=== PATIENT | female | born 1945 | race Caucasian/White ===

== ENCOUNTER 2018-07-04 13:45 | Emergency (ER) | payer MEDICARE ==
[~2018-07-04] VITALS: Ht 167.6 cm; Wt 95.5 kg
[~2018-07-04 13:45] MED LIST: AMLO1TAB15 PO; ASPI-611 PO; CIPR500T24 PO; VITA-268 PO
[2018-07-04 14:37] LABS: BASOPHILS % (AUTO) 0.4 % (0-1); EOSINOPHILS % (AUTO) 0.2 % (0-6); HEMATOCRIT 41.1 % (35.0-45.0); HEMOGLOBIN 14.2 g/dl (12.0-16.0); LYMPHOCYTES # (AUTO) 0.8 X10'3 (1.1-4.8); LYMPHOCYTES % (AUTO) 6.9 % (21-51); MEAN CORPUSCULAR HEMOGLOBIN 31.2 PG (27.0-31.0); MEAN CORPUSCULAR HGB CONC 34.5 g/dL (33.0-36.5); MEAN CORPUSCULAR VOLUME 90.5 FL (78-98); MEAN PLATELET VOLUME 6.4 FL (7.4-10.4); MONOCYTES # (AUTO) 0.8 X10'3 (0-0.9); MONOCYTES % (AUTO) 6.9 % (2-12); NEUTROPHILS # (AUTO) 9.5 X10'3 (1.8-7.7); NEUTROPHILS % (AUTO) 85.6 % (42-75); PLATELET COUNT 204 X10'3 (140-440); RED BLOOD COUNT 4.54 X10'6 (4.20-5.60); RED CELL DISTRIBUTION WIDTH 12.8 % (11.5-14.5); WHITE BLOOD COUNT 11.1 X10'3 (4.5-11.0)
[2018-07-04] MEDS ORDERED: normal saline 1000ML IV soln IVB ONE (14:45)
[2018-07-04 14:50] LABS: INR 1.1 INR; PARTIAL THROMBOPLASTIN TIME 29 SECONDS (22-32); PROTHROMBIN TIME 10.8 SECONDS (9.0-12.0)
[2018-07-04 14:52] LABS: ALANINE AMINOTRANSFERASE 41 U/L (12-78); ALBUMIN 3.9 G/DL (3.4-5.0); ALBUMIN/GLOBULIN RATIO 0.9 (1.1-1.5); ALKALINE PHOSPHATASE 71 IU/L (46-116); ANION GAP 8 (8-16); ASPARTATE AMINO TRANSFERASE 28 U/L (10-37); BILIRUBIN,TOTAL 0.7 MG/DL (0.1-1.0); BLOOD UREA NITROGEN 10 MG/DL (7-18); BUN/CREATININE RATIO 13.2 (6.6-38.0); CHLORIDE 99 MMOL/L (99-107); CREATININE 0.76 MG/DL (0.40-0.90); GLUCOSE 138 MG/DL (70-104); SODIUM 134 MMOL/L (135-145); TOTAL CARBON DIOXIDE 26.7 MMOL/L (24-32); TOTAL PROTEIN 8.2 G/DL (6.4-8.2); eGFR 75 ML/MIN
[2018-07-04] MEDS ORDERED: potassium Cl 20 mEq SR tablet PO STA (15:07)
[2018-07-04 17:39] LABS: CLARITY,URINE CLOUDY (Clear); COLOR,URINE YELLOW (Yellow); GLUCOSE, URINE NEGATIVE (Neg); KETONES,URINE NEGATIVE (Neg); LEUKOCYTE ESTERASE ,URINE SMALL (Neg); NITRITES, URINE POSITIVE (Neg); OCCULT BLOOD,URINE TRACE-INTACT (Neg); PROTEIN,URINE NEGATIVE (Neg); UROBILINOGEN,URINE 0.2 E.U/dL (0.2-1.0)
[2018-07-04 17:48] LABS: UA COLLECTION TYPE CLN CATCH MIDSTREAM
[2018-07-04 17:53] LABS: BACTERIA,URINE 3+ /HPF (Neg); SQUAMOUS EPITHELIAL CELL,UR FEW /LPF (FEW)
[2018-07-04 17:54] LABS: RBC,URINE 0-2 /HPF (0-2); WBC CLUMPS,URINE FEW /HPF (NEGATIVE)
[2018-07-04] MEDS ORDERED: AMOX-422 PO (17:58)
[2018-07-04] MEDS ORDERED: piperacillin/tazo 3.375gm/50ml 50 ML IV ONE (18:00)
[2018-07-04 19:32] VITALS: BP 160/78
== END 2018-07-04 19:34 | disposition home or self-care (01) ==
LOC: ER 13:47
DX: N39.0 Urinary tract infection, site not specified (principal); R51 Headache; R05 Cough; I10 Essential (primary) hypertension; G89.29 Other chronic pain; R79.1 Abnormal coagulation profile; Z98.890 Other specified postprocedural states; Z88.1 Allergy status to other antibiotic agents; Z88.5 Allergy status to narcotic agent; Z88.8 Allergy status to other drugs, medicaments and biological substances; Z79.82 Long term (current) use of aspirin; Z79.899 Other long term (current) drug therapy
CPT/HCPCS: 36415; 71045; 80053; 81001; 84484; 85025; 85610; 85730; 87502; 87503; 93005; 96365; 99284; J2543; J7030

== ENCOUNTER 2018-09-24 12:19 | Emergency (ER) | payer MEDICARE ==
[~2018-09-24] VITALS: Ht 167.6 cm; Wt 100.9 kg
[2018-09-24 13:13] LABS: BASOPHILS % (AUTO) 0.7 % (0-1); EOSINOPHILS # (AUTO) 0.1 X10'3 (0-0.9); HEMATOCRIT 40.1 % (35.0-45.0); HEMOGLOBIN 13.5 g/dl (12.0-16.0); LYMPHOCYTES # (AUTO) 1.5 X10'3 (1.1-4.8); LYMPHOCYTES % (AUTO) 21.9 % (21-51); MEAN CORPUSCULAR HEMOGLOBIN 31.2 PG (27.0-31.0); MEAN CORPUSCULAR HGB CONC 33.7 g/dL (33.0-36.5); MEAN CORPUSCULAR VOLUME 92.6 FL (78-98); MEAN PLATELET VOLUME 6.4 FL (7.4-10.4); MONOCYTES # (AUTO) 0.6 X10'3 (0-0.9); MONOCYTES % (AUTO) 9.2 % (2-12); NEUTROPHILS # (AUTO) 4.7 X10'3 (1.8-7.7); NEUTROPHILS % (AUTO) 66.2 % (42-75); PLATELET COUNT 259 X10'3 (140-440); RED BLOOD COUNT 4.34 X10'6 (4.20-5.60); RED CELL DISTRIBUTION WIDTH 14.3 % (11.5-14.5)
[2018-09-24 13:18] LABS: PARTIAL THROMBOPLASTIN TIME 28 SECONDS (22-32)
[2018-09-24 13:19] LABS: ALANINE AMINOTRANSFERASE 30 U/L (12-78); ALBUMIN/GLOBULIN RATIO 0.9 (1.1-1.5); ALKALINE PHOSPHATASE 147 IU/L (46-116); ANION GAP 10 (8-16); ASPARTATE AMINO TRANSFERASE 22 U/L (10-37); BILIRUBIN,TOTAL 0.4 MG/DL (0.1-1.0); BLOOD UREA NITROGEN 10 MG/DL (7-18); BUN/CREATININE RATIO 14.7 (6.6-38.0); CALCIUM 9.6 MG/DL (8.5-10.1); CHLORIDE 101 MMOL/L (99-107); CREATININE 0.68 MG/DL (0.40-0.90); GLUCOSE 122 MG/DL (70-104); POTASSIUM 3.9 MMOL/L (3.5-5.1); SODIUM 141 MMOL/L (135-145); TOTAL PROTEIN 8.5 G/DL (6.4-8.2); eGFR 85 ML/MIN
[2018-09-24] MEDS ORDERED: cloNIDine 0.1 mg tablet PO ONE (13:40)
[2018-09-24 14:23] VITALS: BP 175/85
== END 2018-09-24 14:25 | disposition home or self-care (01) ==
LOC: ER 12:19
DX: J06.9 Acute upper respiratory infection, unspecified (principal); I10 Essential (primary) hypertension; G89.29 Other chronic pain; M54.9 Dorsalgia, unspecified; Z88.6 Allergy status to analgesic agent; Z88.1 Allergy status to other antibiotic agents; Z88.8 Allergy status to other drugs, medicaments and biological substances; Z79.82 Long term (current) use of aspirin
CPT/HCPCS: 36415; 71045; 80053; 84484; 85025; 85610; 85730; 93005; 99283; 99284

== ENCOUNTER 2018-12-27 18:22 | Inpatient (IN) | payer MEDICARE ==
[~2018-12-27] VITALS: Ht 167.6 cm; Wt 100.0 kg
[2018-12-27 19:37] LABS: PARTIAL THROMBOPLASTIN TIME 28 SECONDS (22-32)
[2018-12-27 19:38] LABS: ALANINE AMINOTRANSFERASE 37 U/L (12-78); ALBUMIN 3.8 G/DL (3.4-5.0); ALKALINE PHOSPHATASE 73 IU/L (46-116); ANION GAP 10 (8-16); ASPARTATE AMINO TRANSFERASE 23 U/L (10-37); BILIRUBIN,TOTAL 0.8 MG/DL (0.1-1.0); BLOOD UREA NITROGEN 12 MG/DL (7-18); BUN/CREATININE RATIO 15.8 (6.6-38.0); CALCIUM 8.8 MG/DL (8.5-10.1); CHLORIDE 100 MMOL/L (99-107); CREATININE 0.76 MG/DL (0.40-0.90); GLUCOSE 189 MG/DL (70-104); POTASSIUM 3.2 MMOL/L (3.5-5.1); SODIUM 138 MMOL/L (135-145); TOTAL CARBON DIOXIDE 28.3 MMOL/L (24-32); TOTAL PROTEIN 7.7 G/DL (6.4-8.2); eGFR 75 ML/MIN
[2018-12-27 19:47] LABS: BASOPHILS % (AUTO) 0.2 % (0-1); EOSINOPHILS % (AUTO) 0 % (0-6); HEMATOCRIT 39.9 % (35.0-45.0); HEMOGLOBIN 13.6 g/dl (12.0-16.0); LYMPHOCYTES # (AUTO) 0.8 X10'3 (1.1-4.8); LYMPHOCYTES % (AUTO) 7.1 % (21-51); MEAN CORPUSCULAR HGB CONC 34.1 g/dL (33.0-36.5); MEAN CORPUSCULAR VOLUME 90.9 FL (78-98); MONOCYTES # (AUTO) 0.7 X10'3 (0-0.9); MONOCYTES % (AUTO) 5.9 % (2-12); NEUTROPHILS # (AUTO) 10.3 X10'3 (1.8-7.7); NEUTROPHILS % (AUTO) 86.8 % (42-75); PLATELET COUNT 181 X10'3 (140-440); RED BLOOD COUNT 4.39 X10'6 (4.20-5.60); WHITE BLOOD COUNT 11.8 X10'3 (4.5-11.0)
[2018-12-27] MEDS ORDERED: normal saline 1000ML IV soln IVB ONE (20:00)
[2018-12-27] MEDS ORDERED: magnesium hydroxide 30ml (MOM) UD suspension PO PRN (20:25)
[2018-12-27] MEDS ORDERED: magnesium 4gm in 100ml NS 100 ML IV PRN (20:25)
[2018-12-27] MEDS ORDERED: acetaminophen 325mg tablet PO PRN ×2 (20:25)
[2018-12-27] MEDS ORDERED: HYDROcodone/acetaminophen 10/325mg tab PO PRN (20:25)
[2018-12-27] MEDS ORDERED: normal saline 1000ml 1,000 ML IV ONE (20:25)
[2018-12-27] MEDS ORDERED: HYDROcodone/acetaminophen 5mg/325mg tablet PO PRN (20:25)
[2018-12-27] MEDS ORDERED: potassium CL 10mEq/100ml bag 100 ML IV PRN ×2 (20:25)
[2018-12-27] MEDS ORDERED: ondansetron/PF 4mg/2ml inj IV PRN (20:25)
[2018-12-27] MEDS ORDERED: mag hydrox/Alum hydrox/simeth 30ml oral suspension PO PRN (20:25)
[2018-12-27] MEDS ORDERED: morphine 2 MG/ML inj. syringe IV PRN ×2 (20:25)
[2018-12-27] MEDS ORDERED: potassium Cl 20 mEq SR tablet PO PRN (20:25)
[2018-12-27] MEDS ORDERED: magnesium Cl slow-release 64mg tablet PO PRN (20:25)
[2018-12-27] MEDS ORDERED: magnesium 2GM in 50ml NS 50 ML IV PRN (20:25)
[2018-12-27 20:29] LABS: CLARITY,URINE CLEAR (Clear); COLOR,URINE YELLOW (Yellow); GLUCOSE, URINE NEGATIVE (Neg); KETONES,URINE NEGATIVE (Neg); LEUKOCYTE ESTERASE ,URINE TRACE (Neg); NITRITES, URINE NEGATIVE (Neg); OCCULT BLOOD,URINE NEGATIVE (Neg); PH,URINE 6.5 (4.8-8.0); PROTEIN,URINE TRACE mg/dl (Neg); UROBILINOGEN,URINE 0.2 E.U/dL (0.2-1.0)
[2018-12-27] MEDS ORDERED: MESSAGE TO PHARMACY PO ONE (20:30)
[2018-12-27] MEDS ORDERED: dextrose 50%-water 50ml dispensing syringe IV PRN ×2 (20:30)
[2018-12-27] MEDS ORDERED: glucagon, human recombinant 1mg kit SUBCUT PRN (20:30)
[2018-12-27] MEDS ORDERED: dextrose ORAL solution 15 GM/59 ML bottle PO PRN ×2 (20:30)
[2018-12-27] MEDS: insulin glargine (Lantus) pen - multi-dose SQ SCH (21:00)
--- NOTE | 2018-12-27 21:00 | NUR ---
I got verbal report from Rosalina MARTINEZ regarding patient and I will give report to Tiffany MARTINEZ when she is back from break.
[2018-12-27 21:05] LABS: UA COLLECTION TYPE CLN CATCH MIDSTREAM
[2018-12-27] MEDS ORDERED: AMLO2.5T2 PO (21:06)
[2018-12-27] MEDS ORDERED: METF500T PO (21:06)
[2018-12-27] MEDS ORDERED: FURO40TA4 PO (21:07)
[2018-12-27] MEDS ORDERED: VALS160T30 PO (21:08)
[2018-12-27] MEDS ORDERED: POTA20PA40 PO (21:08)
[2018-12-27 21:13] LABS: BACTERIA,URINE FEW /HPF (Neg); MUCUS STRANDS NONE SEEN /LPF (Neg); RBC,URINE NONE SEEN /HPF (0-2); SQUAMOUS EPITHELIAL CELL,UR MODERATE /LPF (FEW)
[2018-12-27 21:20] VITALS: BP 174/83
[2018-12-27] MEDS: potassium Cl 20 mEq SR tablet PO PRN (21:42)
[2018-12-27] MEDS: VANCOmycin 1250MG/NS 250ml Bag 250 ML IV SCH (21:50)
--- NOTE | 2018-12-27 23:40 | NUR ---
Called MD to notify him that only 1 bottle for BC was drawn, unable to get enough blood for 2nd bottle. stated that we could cancel the order, as patient seems to be doing ok.
[2018-12-28] MEDS: potassium Cl 20 mEq SR tablet PO PRN ×3 (01:55→17:28)
[2018-12-28 06:10] VITALS: BP 181/78
--- NOTE | 2018-12-28 06:21 | NUR ---
Problems reprioritized. Patient report given, questions answered & plan of care reviewed with MICHELLE Adams.
[2018-12-28 07:10] LABS: BASOPHILS # (AUTO) 0.1 X10'3 (0-0.2); BASOPHILS % (AUTO) 0.6 % (0-1); EOSINOPHILS % (AUTO) 0.5 % (0-6); HEMATOCRIT 34.8 % (35.0-45.0); LYMPHOCYTES # (AUTO) 1.3 X10'3 (1.1-4.8); LYMPHOCYTES % (AUTO) 15.2 % (21-51); MEAN CORPUSCULAR HEMOGLOBIN 31.4 PG (27.0-31.0); MEAN CORPUSCULAR HGB CONC 34.4 g/dL (33.0-36.5); MEAN CORPUSCULAR VOLUME 91.4 FL (78-98); MEAN PLATELET VOLUME 6.7 FL (7.4-10.4); MONOCYTES # (AUTO) 0.8 X10'3 (0-0.9); MONOCYTES % (AUTO) 8.5 % (2-12); NEUTROPHILS # (AUTO) 6.6 X10'3 (1.8-7.7); NEUTROPHILS % (AUTO) 75.2 % (42-75); PLATELET COUNT 157 X10'3 (140-440); RED BLOOD COUNT 3.81 X10'6 (4.20-5.60); RED CELL DISTRIBUTION WIDTH 13.8 % (11.5-14.5); WHITE BLOOD COUNT 8.8 X10'3 (4.5-11.0)
[2018-12-28 07:27] LABS: ALBUMIN 3.1 G/DL (3.4-5.0); ANION GAP 7 (8-16); BLOOD UREA NITROGEN 14 MG/DL (7-18); BUN/CREATININE RATIO 21.5 (6.6-38.0); CALCIUM 8.4 MG/DL (8.5-10.1); CHLORIDE 106 MMOL/L (99-107); CREATININE 0.65 MG/DL (0.40-0.90); GLUCOSE 144 MG/DL (70-104); MAGNESIUM 1.6 MG/DL (1.5-2.4); POTASSIUM 3.4 MMOL/L (3.5-5.1); SODIUM 140 MMOL/L (135-145); TOTAL CARBON DIOXIDE 26.6 MMOL/L (24-32); eGFR 89 ML/MIN
[2018-12-28] MEDS: K and/or MAG REPLACEMENT MC SCH (08:00)
[2018-12-28] MEDS: losartan 50mg tablet PO SCH (08:16)
[2018-12-28] MEDS: amLODIPine 5mg tablet PO SCH (08:16)
[2018-12-28] MEDS: enoxaparin 40mg/0.4ml syringe SQ SCH (08:16)
[2018-12-28] MEDS: potassium Cl 20 mEq SR tablet PO SCH (08:16)
[2018-12-28] MEDS: furosemide 40mg tablet PO SCH (08:16)
[2018-12-28] MEDS: vitamin B comp w/Vit. C tab 1 TAB TABLET PO SCH (08:23)
[2018-12-28] MEDS: VANCOmycin 1250MG/NS 250ml Bag 250 ML IV SCH ×2 (08:23→21:03)
[2018-12-28 10:00] VITALS: BP 148/77
--- NOTE | 2018-12-28 13:31 | NUR ---
DM consult: Pt with A1c 7.0 admit with RLE cellulitis. Pt currently on CHO controlled diet documented with 100% PO intake meeting nutrient needs. Pt will need protein and DM education with referral to outpatient DM class prior to discharge. Will continue to follow. Addendum: 12/28/18 at [address] Amended: Links added.
[2018-12-28] MEDS ORDERED: CefTRIAXone 2gm/D5W 50ml 50 ML IV ONE (15:15)
--- NOTE | 2018-12-28 16:02 | NUR ---
PAGER ID: [phone] MESSAGE: Lamar [id number] re Levi Ferrer in [id number]- she has an allergy to cephalexin, what would you like me to do? Pls call thank you
[2018-12-28 18:00] VITALS: BP 165/81
[2018-12-28] MEDS: ciprofloxacin lact 400MG/200ML 200 ML IV SCH (18:00)
[2018-12-28] MEDS: insulin glargine (Lantus) pen - multi-dose SQ SCH (21:19)
[2018-12-28 22:00] VITALS: BP 163/95
[2018-12-29 06:00] VITALS: BP 179/77
--- NOTE | 2018-12-29 06:24 | NUR ---
Problems reprioritized. Patient report given, questions answered & plan of care reviewed with MICHELLE Cho.
--- NOTE | 2018-12-29 06:30 | NUR ---
received report from morris souza
[2018-12-29] MEDS: K and/or MAG REPLACEMENT MC SCH (08:00)
[2018-12-29] MEDS ORDERED: CefTRIAXone 2gm/D5W 50ml 50 ML IV SCH (08:00)
--- NOTE | 2018-12-29 08:00 | NUR ---
pt tells me that she does not need warm compresses, continue to educate and monitor
[2018-12-29] MEDS ORDERED: VANCOMYCIN LEVEL IV ONE (08:30)
[2018-12-29] MEDS: insulin Lispro (HumaLOG) vial - multi-dose SQ SCH ×3 (09:02→20:09)
[2018-12-29] MEDS: potassium Cl 20 mEq SR tablet PO PRN ×2 (09:07→13:02)
[2018-12-29] MEDS: potassium Cl 20 mEq SR tablet PO SCH (09:07)
[2018-12-29] MEDS: losartan 50mg tablet PO SCH (09:08)
[2018-12-29] MEDS: amLODIPine 5mg tablet PO SCH (09:08)
[2018-12-29] MEDS: furosemide 40mg tablet PO SCH (09:08)
[2018-12-29] MEDS: vitamin B comp w/Vit. C tab 1 TAB TABLET PO SCH (09:08)
[2018-12-29] MEDS: ciprofloxacin lact 400MG/200ML 200 ML IV SCH ×2 (09:09→20:43)
[2018-12-29 09:12] LABS: BASOPHILS # (AUTO) 0.1 X10'3 (0-0.2); BASOPHILS % (AUTO) 1.1 % (0-1); EOSINOPHILS # (AUTO) 0.1 X10'3 (0-0.9); HEMATOCRIT 36.8 % (35.0-45.0); HEMOGLOBIN 12.5 g/dl (12.0-16.0); LYMPHOCYTES # (AUTO) 1.2 X10'3 (1.1-4.8); MEAN CORPUSCULAR HEMOGLOBIN 31.1 PG (27.0-31.0); MEAN CORPUSCULAR HGB CONC 33.9 g/dL (33.0-36.5); MEAN CORPUSCULAR VOLUME 91.7 FL (78-98); MEAN PLATELET VOLUME 6.8 FL (7.4-10.4); MONOCYTES # (AUTO) 0.4 X10'3 (0-0.9); MONOCYTES % (AUTO) 6.8 % (2-12); NEUTROPHILS # (AUTO) 4.2 X10'3 (1.8-7.7); NEUTROPHILS % (AUTO) 70.1 % (42-75); PLATELET COUNT 182 X10'3 (140-440); RED BLOOD COUNT 4.02 X10'6 (4.20-5.60); RED CELL DISTRIBUTION WIDTH 13.6 % (11.5-14.5)
[2018-12-29] MEDS: enoxaparin 40mg/0.4ml syringe SQ SCH (09:15)
[2018-12-29 09:27] LABS: ALBUMIN 3.3 G/DL (3.4-5.0); ANION GAP 8 (8-16); BLOOD UREA NITROGEN 10 MG/DL (7-18); BUN/CREATININE RATIO 16.4 (6.6-38.0); CALCIUM 8.4 MG/DL (8.5-10.1); CHLORIDE 108 MMOL/L (99-107); CREATININE 0.61 MG/DL (0.40-0.90); GLUCOSE 155 MG/DL (70-104); MAGNESIUM 1.9 MG/DL (1.5-2.4); POTASSIUM 3.7 MMOL/L (3.5-5.1); SODIUM 142 MMOL/L (135-145); TOTAL CARBON DIOXIDE 26.1 MMOL/L (24-32); VANCOMYCIN,TROUGH 12.9 UG/ML (6.0-14.0); eGFR > 90 ML/MIN
[2018-12-29 10:00] VITALS: BP 161/63
[2018-12-29] MEDS: lactobacillus rhamnosus 10,000 MMU CELLS/CAPSULE PO SCH ×2 (10:49→20:43)
[2018-12-29] MEDS: VANCOmycin 1250MG/NS 250ml Bag 250 ML IV SCH (10:49)
--- NOTE | 2018-12-29 12:00 | NUR ---
pt is refusing her warm compress, continue to educate and monitor
--- NOTE | 2018-12-29 16:00 | NUR ---
pt does not want to utilize a warm compress, continue to educate and monitor
--- NOTE | 2018-12-29 16:52 | NUR ---
F/u: Pt seen by LEISA for written/verbal DM ed w/ verbal high protein ed and RD contact information provided. Pt agrees to cottage cheese w/ breakfasts; dietary notified. Addendum: 12/29/18 at [address] Amended: Links added.
--- NOTE | 2018-12-29 18:25 | NUR ---
gave report to morris trinidad
[2018-12-29 18:30] VITALS: BP 165/81
--- NOTE | 2018-12-29 18:30 | NUR ---
Patient in room [facility] 4014. I have received report from BRITTANY and had the opportunity to ask questions and assume patient care.
--- NOTE | 2018-12-29 19:30 | NUR ---
REFUSED COMPRESS Addendum: 12/30/18 at 0020 by Emma Reeves RN Amended: Links added.
[2018-12-29] MEDS: insulin glargine (Lantus) pen - multi-dose SQ SCH (20:50)
[2018-12-29 22:00] VITALS: BP 159/78
[2018-12-30 06:00] VITALS: BP 135/78
--- NOTE | 2018-12-30 06:17 | NUR ---
Problems reprioritized. Patient report given, questions answered & plan of care reviewed with
[2018-12-30 06:38] LABS: EOSINOPHILS # (AUTO) 0.2 X10'3 (0-0.9); EOSINOPHILS % (AUTO) 3.6 % (0-6); HEMATOCRIT 39.1 % (35.0-45.0); HEMOGLOBIN 13.4 g/dl (12.0-16.0); LYMPHOCYTES # (AUTO) 1.3 X10'3 (1.1-4.8); LYMPHOCYTES % (AUTO) 26.6 % (21-51); MEAN CORPUSCULAR HEMOGLOBIN 31.1 PG (27.0-31.0); MEAN CORPUSCULAR HGB CONC 34.2 g/dL (33.0-36.5); MEAN CORPUSCULAR VOLUME 91.1 FL (78-98); MEAN PLATELET VOLUME 6.6 FL (7.4-10.4); MONOCYTES # (AUTO) 0.3 X10'3 (0-0.9); MONOCYTES % (AUTO) 7.3 % (2-12); NEUTROPHILS # (AUTO) 2.9 X10'3 (1.8-7.7); NEUTROPHILS % (AUTO) 61.5 % (42-75); PLATELET COUNT 219 X10'3 (140-440); RED BLOOD COUNT 4.29 X10'6 (4.20-5.60); RED CELL DISTRIBUTION WIDTH 13.8 % (11.5-14.5); WHITE BLOOD COUNT 4.7 X10'3 (4.5-11.0)
[2018-12-30] MEDS: ciprofloxacin lact 400MG/200ML 200 ML IV SCH ×2 (07:06→20:51)
[2018-12-30] MEDS: amLODIPine 5mg tablet PO SCH (07:06)
[2018-12-30] MEDS: furosemide 40mg tablet PO SCH (07:07)
[2018-12-30] MEDS: vitamin B comp w/Vit. C tab 1 TAB TABLET PO SCH (07:07)
[2018-12-30] MEDS: losartan 50mg tablet PO SCH (07:07)
[2018-12-30] MEDS: lactobacillus rhamnosus 10,000 MMU CELLS/CAPSULE PO SCH ×2 (07:07→20:51)
[2018-12-30] MEDS: K and/or MAG REPLACEMENT MC SCH (07:08)
[2018-12-30] MEDS: enoxaparin 40mg/0.4ml syringe SQ SCH (07:08)
[2018-12-30 07:09] LABS: ALBUMIN 3.5 G/DL (3.4-5.0); ANION GAP 10 (8-16); BLOOD UREA NITROGEN 12 MG/DL (7-18); BUN/CREATININE RATIO 16.9 (6.6-38.0); CHLORIDE 106 MMOL/L (99-107); CREATININE 0.71 MG/DL (0.40-0.90); GLUCOSE 135 MG/DL (70-104); MAGNESIUM 1.9 MG/DL (1.5-2.4); SODIUM 142 MMOL/L (135-145); TOTAL CARBON DIOXIDE 26.3 MMOL/L (24-32); eGFR 81 ML/MIN
[2018-12-30] MEDS: potassium Cl 20 mEq SR tablet PO SCH (07:09)
[2018-12-30 07:14] LABS: POTASSIUM 3.9 MMOL/L (3.5-5.1)
[2018-12-30 10:00] VITALS: BP 169/86
[2018-12-30 21:48] VITALS: BP 179/89
[2018-12-30] MEDS: insulin glargine (Lantus) pen - multi-dose SQ SCH (22:10)
[2018-12-31 06:00] VITALS: BP 157/69
--- NOTE | 2018-12-31 06:23 | NUR ---
Report given to morris Espinal.
[2018-12-31] MEDS ORDERED: VANCOMYCIN LEVEL IV ONE (08:30)
[2018-12-31 08:56] LABS: BASOPHILS # (AUTO) 0.1 X10'3 (0-0.2); BASOPHILS % (AUTO) 1.2 % (0-1); EOSINOPHILS # (AUTO) 0.1 X10'3 (0-0.9); EOSINOPHILS % (AUTO) 2.9 % (0-6); HEMATOCRIT 40.2 % (35.0-45.0); HEMOGLOBIN 13.6 g/dl (12.0-16.0); LYMPHOCYTES # (AUTO) 1.2 X10'3 (1.1-4.8); LYMPHOCYTES % (AUTO) 24.8 % (21-51); MEAN CORPUSCULAR HEMOGLOBIN 30.8 PG (27.0-31.0); MEAN CORPUSCULAR HGB CONC 33.8 g/dL (33.0-36.5); MEAN CORPUSCULAR VOLUME 91.3 FL (78-98); MEAN PLATELET VOLUME 6.3 FL (7.4-10.4); MONOCYTES # (AUTO) 0.3 X10'3 (0-0.9); MONOCYTES % (AUTO) 6.8 % (2-12); NEUTROPHILS # (AUTO) 3.1 X10'3 (1.8-7.7); NEUTROPHILS % (AUTO) 64.3 % (42-75); PLATELET COUNT 218 X10'3 (140-440); RED CELL DISTRIBUTION WIDTH 13.6 % (11.5-14.5); WHITE BLOOD COUNT 4.8 X10'3 (4.5-11.0)
[2018-12-31] MEDS: losartan 50mg tablet PO SCH (09:07)
[2018-12-31] MEDS: vitamin B comp w/Vit. C tab 1 TAB TABLET PO SCH (09:07)
[2018-12-31] MEDS: furosemide 40mg tablet PO SCH (09:07)
[2018-12-31] MEDS: enoxaparin 40mg/0.4ml syringe SQ SCH (09:07)
[2018-12-31] MEDS: lactobacillus rhamnosus 10,000 MMU CELLS/CAPSULE PO SCH (09:07)
[2018-12-31] MEDS: amLODIPine 5mg tablet PO SCH (09:07)
[2018-12-31] MEDS: potassium Cl 20 mEq SR tablet PO SCH (09:08)
[2018-12-31 09:11] LABS: ALBUMIN 3.7 G/DL (3.4-5.0); ANION GAP 6 (8-16); BLOOD UREA NITROGEN 12 MG/DL (7-18); BUN/CREATININE RATIO 17.4 (6.6-38.0); CALCIUM 9.5 MG/DL (8.5-10.1); CHLORIDE 106 MMOL/L (99-107); CREATININE 0.69 MG/DL (0.40-0.90); GLUCOSE 167 MG/DL (70-104); POTASSIUM 3.8 MMOL/L (3.5-5.1); SODIUM 141 MMOL/L (135-145); TOTAL CARBON DIOXIDE 28.9 MMOL/L (24-32); eGFR 83 ML/MIN
[2018-12-31 09:21] LABS: VANCOMYCIN,TROUGH 22.5 UG/ML (6.0-14.0)
--- NOTE | 2018-12-31 09:49 | NUR ---
Pharmacy/Zackary: CRITICAL LAB Comfort reported (22.5). Go ahead and administer as ordered. Previous doses were hung late. Range is 15-20. another trough will be drawn in the AM
[2018-12-31] MEDS: ciprofloxacin lact 400MG/200ML 200 ML IV SCH (10:28)
[2018-12-31] MEDS ORDERED: LACT1CAP26 PO (13:30)
[2018-12-31] MEDS ORDERED: LEVO750T21 PO (13:30)
--- NOTE | 2018-12-31 15:30 | NUR ---
DISCHARGE: VSS, RR even/unlabored. LCTAB. Denies pain, SOB, resp distress, N/V, vertigo at DC. All necessary DC documents signed, copies released to pt. New pharm orders called in for Levaquin, probiotic. Pt escorted Bhargav in WC by [facility] staff & spouse. pt thanked [facility] for pt care. Pt transferred safely into personal vehicle home.
[2019-01-01] MEDS ORDERED: VANCOMYCIN LEVEL IV ONE (08:30)
== END 2018-12-31 15:30 | disposition home or self-care (01) | DRG 872 ==
LOC: ER 18:24 → ORTHO 4S 21:24
PROVIDERS: ADMIT Hospitalist; ATTEND Internal Medicine
DX: A41.9 Sepsis, unspecified organism (principal); L03.115 Cellulitis of right lower limb; E11.9 Type 2 diabetes mellitus without complications; I10 Essential (primary) hypertension; G89.29 Other chronic pain; M54.9 Dorsalgia, unspecified; Z88.1 Allergy status to other antibiotic agents; Z88.5 Allergy status to narcotic agent; Z88.8 Allergy status to other drugs, medicaments and biological substances; Z79.899 Other long term (current) drug therapy; Z79.82 Long term (current) use of aspirin; Z79.84 Long term (current) use of oral hypoglycemic drugs
CPT/HCPCS: 36415; 71045; 80048; 80053; 80202; 81001; 82948; 83036; 83605; 83735; 84145; 85025; 85610; 85730; 87040; 87081; 87088; 96360; 99285; G0378; J0744; J1650; J1815; J3370

== ENCOUNTER 2020-05-11 12:58 | Inpatient (IN) | payer MEDICARE ==
[~2020-05-11] VITALS: Ht 167.6 cm; Wt 90.9 kg
[~2020-05-11 12:58] MED LIST changes: -AMLO1TAB15 PO; +AMLO2.5T2 PO; -ASPI-611 PO; -CIPR500T24 PO; +FURO40TA4 PO; +LACT1CAP26 PO; +METF500T PO; +POTA20PA40 PO; +VALS160T30 PO
[2020-05-11] MEDS ORDERED: piperacillin/tazo 3.375gm/50ml 50 ML IV ONE (13:40)
[2020-05-11] MEDS ORDERED: vancomycin/NS 1 GM ADD-VANTAGE 250 ML IV ONE ×2 (13:40→16:10)
[2020-05-11] MEDS ORDERED: HYDROcodone/acetaminophen 10/325mg tab PO ONE (13:40)
[2020-05-11] MEDS ORDERED: bisacodyl 10mg suppository rectal RC PRN (14:15)
[2020-05-11] MEDS ORDERED: HYDROcodone/acetaminophen 10/325mg tab PO PRN (14:15)
[2020-05-11] MEDS ORDERED: HYDROmorphone inj. 0.5 MG/0.5 ML DISP.SYRIN IV PRN (14:15)
[2020-05-11] MEDS ORDERED: acetaminophen 325mg tablet PO PRN (14:15)
[2020-05-11] MEDS ORDERED: HYDROcodone/acetaminophen 5mg/325mg tablet PO PRN (14:15)
[2020-05-11] MEDS ORDERED: metoclopramide 5 mg/ml inj IV PRN (14:15)
[2020-05-11] MEDS ORDERED: mag hydrox/Alum hydrox/simeth 30ml oral suspension PO PRN (14:15)
[2020-05-11 14:27] LABS: BASOPHILS % (AUTO) 0.6 % (0-1); EOSINOPHILS # (AUTO) 0.1 X10'3 (0-0.9); EOSINOPHILS % (AUTO) 2.4 % (0-6); HEMATOCRIT 36.5 % (35.0-45.0); HEMOGLOBIN 12.1 g/dl (12.0-16.0); LYMPHOCYTES # (AUTO) 1.1 X10'3 (1.1-4.8); LYMPHOCYTES % (AUTO) 21.6 % (21-51); MEAN CORPUSCULAR HEMOGLOBIN 31.1 PG (27.0-31.0); MEAN CORPUSCULAR HGB CONC 33.3 g/dL (33.0-36.5); MEAN CORPUSCULAR VOLUME 93.6 FL (78-98); MEAN PLATELET VOLUME 6.3 FL (7.4-10.4); MONOCYTES # (AUTO) 0.5 X10'3 (0-0.9); MONOCYTES % (AUTO) 9.5 % (2-12); NEUTROPHILS # (AUTO) 3.4 X10'3 (1.8-7.7); NEUTROPHILS % (AUTO) 65.9 % (42-75); PLATELET COUNT 277 X10'3 (140-440); RED CELL DISTRIBUTION WIDTH 13.2 % (11.5-14.5); WHITE BLOOD COUNT 5.2 X10'3 (4.5-11.0)
[2020-05-11 14:45] LABS: ALANINE AMINOTRANSFERASE 18 U/L (12-78); ALBUMIN 3.5 G/DL (3.4-5.0); ALBUMIN/GLOBULIN RATIO 0.8 (1.1-1.5); ALKALINE PHOSPHATASE 87 IU/L (46-116); ANION GAP 9 (8-16); ASPARTATE AMINO TRANSFERASE 14 U/L (10-37); BILIRUBIN,TOTAL 0.4 MG/DL (0.1-1.0); BLOOD UREA NITROGEN 17 MG/DL (7-18); BUN/CREATININE RATIO 20.2 (6.6-38.0); CALCIUM 9.4 MG/DL (8.5-10.1); CHLORIDE 101 MMOL/L (99-107); CREATININE 0.84 MG/DL (0.40-0.90); GLUCOSE 121 MG/DL (70-104); POTASSIUM 3.7 MMOL/L (3.5-5.1); SODIUM 139 MMOL/L (135-145); TOTAL CARBON DIOXIDE 29.5 MMOL/L (24-32); TOTAL PROTEIN 8.1 G/DL (6.4-8.2); eGFR 66 ML/MIN
[2020-05-11] MEDS ORDERED: iohexol 300mg/ml 100ml inj. ONE (15:08)
[2020-05-11] MEDS: MESSAGE TO NURSING PO SCH (15:10)
[2020-05-11] MEDS ORDERED: AMOX-580 PO (15:26)
[2020-05-11] MEDS ORDERED: OLME20TA23 PO (15:26)
[2020-05-11] MEDS ORDERED: HYDR25TA4 PO (15:26)
[2020-05-11] MEDS: normal saline 1000ml 1,000 ML IV SCH (15:29)
[2020-05-11] MEDS ORDERED: MULT-384 PO (15:39)
[2020-05-11] MEDS ORDERED: MAGN400C PO (15:39)
[2020-05-11] MEDS ORDERED: ASPI-109 PO (15:39)
[2020-05-11] MEDS ORDERED: piperacillin/tazo 3.375gm/50ml 50 ML IV SCH (16:00)
[2020-05-11 16:35] LABS: PARTIAL THROMBOPLASTIN TIME 27 SECONDS (22-32)
[2020-05-11] MEDS: ondansetron/PF 4mg/2ml inj IV PRN (16:38)
[2020-05-11] MEDS ORDERED: dextrose 50%-water 50ml dispensing syringe IV PRN ×2 (17:40)
[2020-05-11] MEDS ORDERED: dextrose ORAL solution 15 GM/59 ML bottle PO PRN ×2 (17:40)
[2020-05-11] MEDS ORDERED: glucagon, human recombinant 1mg kit SUBCUT PRN (17:40)
[2020-05-11] MEDS ORDERED: MESSAGE TO PHARMACY PO ONE (17:40)
[2020-05-11] MEDS ORDERED: insulin Lispro (HumaLOG) vial - multi-dose SQ SCH (17:40)
[2020-05-11 18:00] LABS: HEMOGLOBIN A1C 7.7 % (4.5-6.2)
--- NOTE | 2020-05-11 18:42 | NUR ---
PT IS EATING HER DINNER VSS
--- NOTE | 2020-05-11 19:05 | NUR ---
PT C/O DIZZINESS, SPOKE TO DR Pickett, GAVE NEW ORDERS
[2020-05-11] MEDS ORDERED: meclizine 12.5mg tablet PO ONE (19:10)
[2020-05-11] MEDS: insulin glargine (Lantus) pen - multi-dose SQ SCH (21:00)
[2020-05-11] MEDS ORDERED: temazepam 15mg capsule PO PRN (21:00)
--- NOTE | 2020-05-11 21:05 | NUR ---
Report received from Patience MARTINEZ in the ER. Pt arrived on the unit via gurney and was able to slide herself to her bed with minimal assistance. Pt belongings placed at bedside. Pt on R/A, IV of NS running @ 100/mls per hr. Pt had no signs od distress. Will continue to monitor.
[2020-05-11 21:10] VITALS: BP 165/82
[2020-05-11] MEDS: acetaminophen 325mg tablet PO PRN (21:31)
[2020-05-12 00:30] VITALS: BP 162/69
[2020-05-12] MEDS: piperacillin/tazo 3.375gm/50ml 50 ML IV SCH ×3 (01:13→17:43)
[2020-05-12] MEDS: normal saline 1000ml 1,000 ML IV SCH ×3 (01:13→13:51)
[2020-05-12] MEDS: vancomycin/NS 1 GM ADD-VANTAGE 250 ML IV SCH ×2 (04:04→15:58)
[2020-05-12] MEDS: ondansetron/PF 4mg/2ml inj IV PRN (04:04)
[2020-05-12] MEDS: acetaminophen 325mg tablet PO PRN ×3 (05:54→19:26)
[2020-05-12] MEDS ORDERED: HYDROmorphone inj. 0.5 MG/0.5 ML DISP.SYRIN IV PRN (06:00)
--- NOTE | 2020-05-12 06:45 | NUR ---
Patient in room [facility] 344. I have received report from Elysia Sauceda and had the opportunity to ask questions and assume patient care.
--- NOTE | 2020-05-12 06:49 | NUR ---
Problems reprioritized. Patient report given, questions answered & plan of care reviewed with Rima MARTINEZ.
[2020-05-12 07:45] LABS: BASOPHILS % (AUTO) 0.7 % (0-1); EOSINOPHILS # (AUTO) 0.1 X10'3 (0-0.9); EOSINOPHILS % (AUTO) 1.9 % (0-6); HEMATOCRIT 32.7 % (35.0-45.0); HEMOGLOBIN 11.1 g/dl (12.0-16.0); LYMPHOCYTES # (AUTO) 1.2 X10'3 (1.1-4.8); LYMPHOCYTES % (AUTO) 25.8 % (21-51); MEAN CORPUSCULAR HEMOGLOBIN 32.1 PG (27.0-31.0); MEAN CORPUSCULAR VOLUME 94.5 FL (78-98); MEAN PLATELET VOLUME 6.4 FL (7.4-10.4); MONOCYTES # (AUTO) 0.5 X10'3 (0-0.9); MONOCYTES % (AUTO) 10.3 % (2-12); NEUTROPHILS # (AUTO) 2.8 X10'3 (1.8-7.7); NEUTROPHILS % (AUTO) 61.3 % (42-75); PLATELET COUNT 230 X10'3 (140-440); RED BLOOD COUNT 3.46 X10'6 (4.20-5.60); RED CELL DISTRIBUTION WIDTH 13.1 % (11.5-14.5); WHITE BLOOD COUNT 4.6 X10'3 (4.5-11.0)
[2020-05-12] MEDS: losartan 50mg tablet PO SCH (07:50)
[2020-05-12] MEDS: furosemide 40mg tablet PO SCH (07:50)
[2020-05-12 08:00] VITALS: BP 135/67
[2020-05-12] MEDS ORDERED: enoxaparin 40mg/0.4ml syringe SUBCUT SCH (08:00)
[2020-05-12 08:14] LABS: ALANINE AMINOTRANSFERASE 15 U/L (12-78); ALBUMIN 2.9 G/DL (3.4-5.0); ALBUMIN/GLOBULIN RATIO 0.7 (1.1-1.5); ALKALINE PHOSPHATASE 73 IU/L (46-116); ANION GAP 10 (8-16); ASPARTATE AMINO TRANSFERASE 13 U/L (10-37); BILIRUBIN,TOTAL 0.5 MG/DL (0.1-1.0); BLOOD UREA NITROGEN 12 MG/DL (7-18); BUN/CREATININE RATIO 17.1 (6.6-38.0); CALCIUM 8.8 MG/DL (8.5-10.1); CHLORIDE 105 MMOL/L (99-107); GLUCOSE 134 MG/DL (70-104); POTASSIUM 3.7 MMOL/L (3.5-5.1); SODIUM 141 MMOL/L (135-145); TOTAL CARBON DIOXIDE 26.1 MMOL/L (24-32); TOTAL PROTEIN 6.9 G/DL (6.4-8.2); eGFR 82 ML/MIN
[2020-05-12] MEDS: MESSAGE TO NURSING PO SCH (10:00)
[2020-05-12] MEDS: amLODIPine 5mg tablet PO SCH (10:23)
--- NOTE | 2020-05-12 11:20 | NUR ---
Per phone call from Dr Castano, he spoke with Dr Sheriff and pt will not have any surgical procedures at this time, will continue to treat with antibiotics. Ok to remove NPO status and feed pt.
--- NOTE | 2020-05-12 11:38 | NUR ---
DM Consult: A1C 7.7 hx T2DM. Pt admit w/ L ankle cellulitis s/p donkey bite. Hx T2DM w/ Glu 126 at this time appropriate. Pt A1C decent given age and DX; will remain available if pt has questions/concerns regarding DM MNT this admit. Addendum: 05/12/20 at [address] Amended: Links added.
[2020-05-12 12:00] VITALS: BP 140/69
--- NOTE | 2020-05-12 18:46 | NUR ---
Problems reprioritized. Patient report given, questions answered & plan of care reviewed with Pat RN.
[2020-05-12 19:00] VITALS: BP 178/75
[2020-05-12] MEDS: lactobacillus rhamnosus 10,000 MMU CELLS/CAPSULE PO SCH (19:26)
[2020-05-12 21:00] VITALS: BP 178/75
[2020-05-12] MEDS: insulin glargine (Lantus) pen - multi-dose SQ SCH (22:06)
[2020-05-12 23:00] VITALS: BP 150/72
[2020-05-12 23:28] LABS: CREATININE 0.84 MG/DL (0.40-0.90)
--- NOTE | 2020-05-13 01:20 | NUR ---
zosyn & vanco not compatible; pt difficult IV/ needle stick; pt upset & c/o of numerous needle sticks for lab draw last night; per pharmacist, okay to start zosyn now, then vanco after zosyn is completed
[2020-05-13] MEDS: piperacillin/tazo 3.375gm/50ml 50 ML IV SCH ×3 (01:21→19:32)
[2020-05-13] MEDS: acetaminophen 325mg tablet PO PRN ×4 (01:23→19:30)
[2020-05-13] MEDS: normal saline 1000ml 1,000 ML IV SCH ×2 (01:25→13:43)
[2020-05-13] MEDS ORDERED: VANCOMYCIN LEVEL IV ONE (03:30)
[2020-05-13] MEDS: vancomycin/NS 1 GM ADD-VANTAGE 250 ML IV SCH (05:17)
[2020-05-13 05:45] LABS: ALANINE AMINOTRANSFERASE 16 U/L (12-78); ALBUMIN 2.7 G/DL (3.4-5.0); ALBUMIN/GLOBULIN RATIO 0.7 (1.1-1.5); ALKALINE PHOSPHATASE 66 IU/L (46-116); ANION GAP 7 (8-16); ASPARTATE AMINO TRANSFERASE 13 U/L (10-37); BILIRUBIN,TOTAL 0.3 MG/DL (0.1-1.0); BLOOD UREA NITROGEN 12 MG/DL (7-18); BUN/CREATININE RATIO 16.7 (6.6-38.0); CALCIUM 8.5 MG/DL (8.5-10.1); CHLORIDE 108 MMOL/L (99-107); CREATININE 0.72 MG/DL (0.40-0.90); GLUCOSE 130 MG/DL (70-104); POTASSIUM 3.7 MMOL/L (3.5-5.1); SODIUM 143 MMOL/L (135-145); TOTAL CARBON DIOXIDE 27.9 MMOL/L (24-32); TOTAL PROTEIN 6.7 G/DL (6.4-8.2); VANCOMYCIN,TROUGH 11.7 UG/ML (6.0-14.0); eGFR 79 ML/MIN
[2020-05-13 05:49] LABS: EOSINOPHILS # (AUTO) 0.2 X10'3 (0-0.9); EOSINOPHILS % (AUTO) 3.4 % (0-6); HEMATOCRIT 30.8 % (35.0-45.0); HEMOGLOBIN 10.6 g/dl (12.0-16.0); LYMPHOCYTES # (AUTO) 1.2 X10'3 (1.1-4.8); MEAN CORPUSCULAR HEMOGLOBIN 32.1 PG (27.0-31.0); MEAN CORPUSCULAR HGB CONC 34.4 g/dL (33.0-36.5); MEAN CORPUSCULAR VOLUME 93.4 FL (78-98); MEAN PLATELET VOLUME 6.3 FL (7.4-10.4); MONOCYTES # (AUTO) 0.5 X10'3 (0-0.9); MONOCYTES % (AUTO) 10.6 % (2-12); NEUTROPHILS # (AUTO) 2.7 X10'3 (1.8-7.7); PLATELET COUNT 236 X10'3 (140-440); RED BLOOD COUNT 3.29 X10'6 (4.20-5.60); RED CELL DISTRIBUTION WIDTH 13.4 % (11.5-14.5); WHITE BLOOD COUNT 4.5 X10'3 (4.5-11.0)
[2020-05-13 07:08] VITALS: BP 181/93
[2020-05-13] MEDS: lactobacillus rhamnosus 10,000 MMU CELLS/CAPSULE PO SCH ×2 (07:20→19:29)
[2020-05-13] MEDS: amLODIPine 5mg tablet PO SCH (07:21)
[2020-05-13] MEDS: losartan 50mg tablet PO SCH (07:21)
[2020-05-13] MEDS: furosemide 40mg tablet PO SCH (07:21)
[2020-05-13] MEDS: MESSAGE TO NURSING PO SCH (10:12)
[2020-05-13 11:00] VITALS: BP 176/88
[2020-05-13] MEDS: VANCOmycin 1250MG/NS 250ml Bag 250 ML IV SCH (17:16)
--- NOTE | 2020-05-13 17:45 | NUR ---
Patient to MRI by WC
[2020-05-13 18:00] VITALS: BP 172/82
--- NOTE | 2020-05-13 18:15 | NUR ---
Problems reprioritized. Patient report given, questions answered & plan of care reviewed with Spencer MARTINEZ.
--- NOTE | 2020-05-13 18:23 | NUR ---
Patient in room [facility] 344. I have received report from MICHELLE Miller and had the opportunity to ask questions and assume patient care. Addendum: 05/13/20 at 1827 by Brayan Odonnell RN Patient is in MRI
--- NOTE | 2020-05-13 18:55 | NUR ---
Patient is back from MRI, and is sitting in recliner eating dinner.
[2020-05-13] MEDS: insulin glargine (Lantus) pen - multi-dose SQ SCH (21:00)
[2020-05-13] MEDS ORDERED: amLODIPine 5mg tablet PO ONE (23:25)
--- NOTE | 2020-05-13 23:45 | NUR ---
One time Norvasc 5mg PO order received from hospitalist because of patients Blood pressures. 1800: 172/82 HR:86; 2315: BP:189/77 HR: 74; 0400: 133/64 HR: 75
[2020-05-14] MEDS: normal saline 1000ml 1,000 ML IV SCH ×2 (03:13→15:19)
[2020-05-14] MEDS: piperacillin/tazo 3.375gm/50ml 50 ML IV SCH ×3 (03:14→19:05)
[2020-05-14] MEDS: acetaminophen 325mg tablet PO PRN ×4 (03:46→23:16)
[2020-05-14 04:00] VITALS: BP 133/64
--- NOTE | 2020-05-14 06:19 | NUR ---
Problems reprioritized. Patient report given, questions answered & plan of care reviewed with MICHELLE Miller.
[2020-05-14 07:25] LABS: EOSINOPHILS # (AUTO) 0.1 X10'3 (0-0.9); EOSINOPHILS % (AUTO) 3.4 % (0-6); HEMATOCRIT 29.9 % (35.0-45.0); HEMOGLOBIN 10.2 g/dl (12.0-16.0); LYMPHOCYTES % (AUTO) 24.6 % (21-51); MEAN CORPUSCULAR HEMOGLOBIN 31.8 PG (27.0-31.0); MEAN CORPUSCULAR VOLUME 93.6 FL (78-98); MEAN PLATELET VOLUME 6.3 FL (7.4-10.4); MONOCYTES # (AUTO) 0.3 X10'3 (0-0.9); MONOCYTES % (AUTO) 7.8 % (2-12); NEUTROPHILS # (AUTO) 2.6 X10'3 (1.8-7.7); NEUTROPHILS % (AUTO) 63.2 % (42-75); PLATELET COUNT 233 X10'3 (140-440); RED BLOOD COUNT 3.19 X10'6 (4.20-5.60); WHITE BLOOD COUNT 4.1 X10'3 (4.5-11.0)
[2020-05-14] MEDS: amLODIPine 5mg tablet PO SCH (07:26)
[2020-05-14] MEDS: furosemide 40mg tablet PO SCH (07:27)
[2020-05-14] MEDS: losartan 50mg tablet PO SCH (07:27)
[2020-05-14] MEDS: lactobacillus rhamnosus 10,000 MMU CELLS/CAPSULE PO SCH ×2 (07:27→19:40)
[2020-05-14] MEDS: VANCOmycin 1250MG/NS 250ml Bag 250 ML IV SCH ×2 (07:29→16:37)
[2020-05-14 07:34] LABS: ALANINE AMINOTRANSFERASE 17 U/L (12-78); ALBUMIN 2.8 G/DL (3.4-5.0); ALBUMIN/GLOBULIN RATIO 0.7 (1.1-1.5); ALKALINE PHOSPHATASE 68 IU/L (46-116); ANION GAP 7 (8-16); ASPARTATE AMINO TRANSFERASE 17 U/L (10-37); BILIRUBIN,TOTAL 0.4 MG/DL (0.1-1.0); BLOOD UREA NITROGEN 10 MG/DL (7-18); BUN/CREATININE RATIO 14.3 (6.6-38.0); CALCIUM 8.1 MG/DL (8.5-10.1); CHLORIDE 108 MMOL/L (99-107); GLUCOSE 135 MG/DL (70-104); POTASSIUM 3.2 MMOL/L (3.5-5.1); SODIUM 142 MMOL/L (135-145); TOTAL CARBON DIOXIDE 27.1 MMOL/L (24-32); TOTAL PROTEIN 6.7 G/DL (6.4-8.2); eGFR 82 ML/MIN
[2020-05-14 08:00] VITALS: BP 169/68
[2020-05-14] MEDS ORDERED: GADOTERATE MEGLUMINE 7.5 MMOL/15 ML VIAL IV ONE (09:55)
--- NOTE | 2020-05-14 10:34 | NUR ---
PAGER ID: [phone] MESSAGE: [phone] Sheree Newberry is 3.2 today, no replacement ordered. Would you like replacement? Angela [phone]
[2020-05-14 11:57] VITALS: BP 159/78
[2020-05-14] MEDS: magnesium hydroxide 30ml (MOM) UD suspension PO PRN (13:12)
[2020-05-14 18:00] VITALS: BP 154/79
--- NOTE | 2020-05-14 18:25 | NUR ---
Problems reprioritized. Patient report given, questions answered & plan of care reviewed with Ольга MARTINEZ.
--- NOTE | 2020-05-14 18:40 | NUR ---
Patient in room [facility] 344. I have received report from Angela MARTINEZ and had the opportunity to ask questions and assume patient care.
[2020-05-14] MEDS: insulin glargine (Lantus) pen - multi-dose SQ SCH ×2 (21:00→21:35)
--- NOTE | 2020-05-14 21:36 | NUR ---
Patient refusing HS blood sugar check Addendum: 05/14/20 at 2136 by Ольга Houston RN Amended: Links added.
[2020-05-15] VITALS: BP 146/73
[2020-05-15] MEDS: normal saline 1000ml 1,000 ML IV SCH ×3 (02:23→16:51)
[2020-05-15] MEDS: piperacillin/tazo 3.375gm/50ml 50 ML IV SCH ×3 (02:23→18:37)
[2020-05-15] MEDS ORDERED: VANCOMYCIN LEVEL IV ONE (04:30)
[2020-05-15] MEDS: acetaminophen 325mg tablet PO PRN ×2 (05:38→16:59)
[2020-05-15] MEDS: VANCOmycin 1250MG/NS 250ml Bag 250 ML IV SCH ×2 (05:39→16:48)
--- NOTE | 2020-05-15 06:27 | NUR ---
Problems reprioritized. Patient report given, questions answered & plan of care reviewed with Ashli MARTINEZ.
[2020-05-15 06:32] LABS: BASOPHILS % (AUTO) 0.8 % (0-1); EOSINOPHILS # (AUTO) 0.2 X10'3 (0-0.9); EOSINOPHILS % (AUTO) 3.6 % (0-6); HEMATOCRIT 31.6 % (35.0-45.0); LYMPHOCYTES # (AUTO) 1.2 X10'3 (1.1-4.8); LYMPHOCYTES % (AUTO) 26.3 % (21-51); MEAN CORPUSCULAR HEMOGLOBIN 32.5 PG (27.0-31.0); MEAN CORPUSCULAR HGB CONC 34.8 g/dL (33.0-36.5); MEAN CORPUSCULAR VOLUME 93.5 FL (78-98); MEAN PLATELET VOLUME 6.1 FL (7.4-10.4); MONOCYTES # (AUTO) 0.4 X10'3 (0-0.9); MONOCYTES % (AUTO) 9.4 % (2-12); NEUTROPHILS # (AUTO) 2.7 X10'3 (1.8-7.7); NEUTROPHILS % (AUTO) 59.9 % (42-75); PLATELET COUNT 252 X10'3 (140-440); RED BLOOD COUNT 3.38 X10'6 (4.20-5.60); WHITE BLOOD COUNT 4.5 X10'3 (4.5-11.0)
[2020-05-15 06:36] LABS: ALANINE AMINOTRANSFERASE 21 U/L (12-78); ALBUMIN 3.1 G/DL (3.4-5.0); ALBUMIN/GLOBULIN RATIO 0.8 (1.1-1.5); ALKALINE PHOSPHATASE 75 IU/L (46-116); ANION GAP 7 (8-16); ASPARTATE AMINO TRANSFERASE 17 U/L (10-37); BILIRUBIN,TOTAL 0.5 MG/DL (0.1-1.0); BLOOD UREA NITROGEN 11 MG/DL (7-18); BUN/CREATININE RATIO 13.8 (6.6-38.0); CALCIUM 8.3 MG/DL (8.5-10.1); CHLORIDE 105 MMOL/L (99-107); GLUCOSE 137 MG/DL (70-104); POTASSIUM 3.6 MMOL/L (3.5-5.1); SODIUM 140 MMOL/L (135-145); TOTAL CARBON DIOXIDE 28.1 MMOL/L (24-32); TOTAL PROTEIN 7.2 G/DL (6.4-8.2); VANCOMYCIN,TROUGH 15.1 UG/ML (6.0-14.0); eGFR 70 ML/MIN
--- NOTE | 2020-05-15 06:38 | NUR ---
Patient in room [facility] 344. I have received report from ADRIANNA MARTINEZ and had the opportunity to ask questions and assume patient care.
[2020-05-15 07:00] VITALS: BP 159/84
[2020-05-15] MEDS: furosemide 40mg tablet PO SCH (08:15)
[2020-05-15] MEDS: losartan 50mg tablet PO SCH (08:16)
[2020-05-15] MEDS: amLODIPine 5mg tablet PO SCH (08:16)
[2020-05-15] MEDS: lactobacillus rhamnosus 10,000 MMU CELLS/CAPSULE PO SCH ×2 (08:16→19:53)
[2020-05-15 11:00] VITALS: BP 143/87
--- NOTE | 2020-05-15 18:23 | NUR ---
Patient in room [facility] 344. I have received report from Ashli MARTINEZ and had the opportunity to ask questions and assume patient care.
[2020-05-15 19:00] VITALS: BP 163/93
[2020-05-15] MEDS: insulin glargine (Lantus) pen - multi-dose SQ SCH (21:59)
--- NOTE | 2020-05-15 21:59 | NUR ---
Patient refusing to have HS blood sugar checked Addendum: 05/15/20 at 2202 by Ольга Houston RN Amended: Links added.
[2020-05-16] VITALS: BP 179/83
[2020-05-16] MEDS: acetaminophen 325mg tablet PO PRN ×4 (01:07→22:14)
[2020-05-16] MEDS: piperacillin/tazo 3.375gm/50ml 50 ML IV SCH ×3 (01:11→18:02)
[2020-05-16] MEDS: normal saline 1000ml 1,000 ML IV SCH ×3 (03:32→23:00)
[2020-05-16] MEDS: VANCOmycin 1250MG/NS 250ml Bag 250 ML IV SCH ×2 (05:24→16:05)
--- NOTE | 2020-05-16 06:28 | NUR ---
Patient in room [facility] 344. I have received report from ADRIANNA MARTINEZ and had the opportunity to ask questions and assume patient care.
--- NOTE | 2020-05-16 06:28 | NUR ---
Problems reprioritized. Patient report given, questions answered & plan of care reviewed with Ashli MARTINEZ.
[2020-05-16 06:44] LABS: BASOPHILS % (AUTO) 0.9 % (0-1); EOSINOPHILS # (AUTO) 0.2 X10'3 (0-0.9); EOSINOPHILS % (AUTO) 3.4 % (0-6); HEMOGLOBIN 10.6 g/dl (12.0-16.0); LYMPHOCYTES # (AUTO) 1.2 X10'3 (1.1-4.8); LYMPHOCYTES % (AUTO) 24.1 % (21-51); MEAN CORPUSCULAR HEMOGLOBIN 31.9 PG (27.0-31.0); MEAN CORPUSCULAR HGB CONC 34.3 g/dL (33.0-36.5); MEAN CORPUSCULAR VOLUME 93.1 FL (78-98); MEAN PLATELET VOLUME 6.2 FL (7.4-10.4); MONOCYTES # (AUTO) 0.5 X10'3 (0-0.9); MONOCYTES % (AUTO) 9.1 % (2-12); NEUTROPHILS # (AUTO) 3.1 X10'3 (1.8-7.7); NEUTROPHILS % (AUTO) 62.5 % (42-75); PLATELET COUNT 264 X10'3 (140-440); RED BLOOD COUNT 3.33 X10'6 (4.20-5.60); RED CELL DISTRIBUTION WIDTH 13.2 % (11.5-14.5)
[2020-05-16 06:57] LABS: ALANINE AMINOTRANSFERASE 19 U/L (12-78); ALBUMIN 2.9 G/DL (3.4-5.0); ALBUMIN/GLOBULIN RATIO 0.7 (1.1-1.5); ALKALINE PHOSPHATASE 72 IU/L (46-116); ANION GAP 8 (8-16); ASPARTATE AMINO TRANSFERASE 16 U/L (10-37); BILIRUBIN,TOTAL 0.5 MG/DL (0.1-1.0); BLOOD UREA NITROGEN 11 MG/DL (7-18); BUN/CREATININE RATIO 13.8 (6.6-38.0); CALCIUM 8.4 MG/DL (8.5-10.1); CHLORIDE 106 MMOL/L (99-107); GLUCOSE 134 MG/DL (70-104); POTASSIUM 3.1 MMOL/L (3.5-5.1); SODIUM 141 MMOL/L (135-145); TOTAL CARBON DIOXIDE 26.7 MMOL/L (24-32); TOTAL PROTEIN 6.9 G/DL (6.4-8.2); eGFR 70 ML/MIN
[2020-05-16 07:00] VITALS: BP 174/74
[2020-05-16] MEDS: lactobacillus rhamnosus 10,000 MMU CELLS/CAPSULE PO SCH ×2 (07:30→20:12)
[2020-05-16] MEDS: losartan 50mg tablet PO SCH (07:32)
[2020-05-16] MEDS: furosemide 40mg tablet PO SCH (07:32)
[2020-05-16] MEDS: amLODIPine 5mg tablet PO SCH (07:32)
[2020-05-16] MEDS ORDERED: magnesium 4gm in 100ml NS 100 ML IV PRN (07:45)
[2020-05-16] MEDS ORDERED: potassium Cl 40MEQ/1/2NS 520ml 520 ML IV PRN (07:45)
[2020-05-16] MEDS ORDERED: magnesium Cl slow-release 64mg tablet PO PRN (07:45)
[2020-05-16] MEDS ORDERED: potassium Cl 20 mEq SR tablet PO PRN (07:45)
[2020-05-16] MEDS: potassium Cl 20 mEq SR tablet PO PRN ×2 (08:37→16:10)
[2020-05-16 11:00] VITALS: BP 176/80
--- NOTE | 2020-05-16 14:46 | NUR ---
Initial: Pt admit DX L ankle cellulitis s/p donkey bite. PO 75-100% avg heart healthy/carb controlled meals meeting needs. LBM 05/15. Will continue to monitor for additional protein needs this admit. Rec: 1. continue carb controlled/heart healthy diet 2. bowel care per rx 3. scaled wt this admit Addendum: 05/16/20 at [address] Amended: Links added.
[2020-05-16] MEDS: magnesium hydroxide 30ml (MOM) UD suspension PO PRN (16:10)
--- NOTE | 2020-05-16 18:42 | NUR ---
patient seen by Dr esposito is not for surgery see note. wound care q2days due tomorrow. seen by Dr mccabe all cares given. Potassium 3.1 replaced x2. Report given to Dmitri MARTINEZ.
[2020-05-16 19:00] VITALS: BP 172/82
[2020-05-16 20:00] VITALS: BP 172/82
--- NOTE | 2020-05-16 20:14 | NUR ---
PT REFUSED HS ACCUCHECK Addendum: 05/16/20 at 2014 by Lamonte Givens RN Amended: Links added.
[2020-05-16] MEDS: insulin glargine (Lantus) pen - multi-dose SQ SCH (21:00)
[2020-05-17] VITALS: BP 174/73
[2020-05-17] MEDS: piperacillin/tazo 3.375gm/50ml 50 ML IV SCH ×3 (02:03→18:54)
[2020-05-17] MEDS: acetaminophen 325mg tablet PO PRN ×3 (04:24→16:24)
[2020-05-17] MEDS: VANCOmycin 1250MG/NS 250ml Bag 250 ML IV SCH ×2 (06:00→16:24)
--- NOTE | 2020-05-17 06:38 | NUR ---
Problems reprioritized. Patient report given, questions answered & plan of care reviewed with CHRISTINA. Addendum: 05/17/20 at 0638 by Lamonte Givens RN Amended: Links added.
--- NOTE | 2020-05-17 06:40 | NUR ---
Patient in room [facility] 344. I have received report from Dmitri and had the opportunity to ask questions and assume patient care.
[2020-05-17 07:00] VITALS: BP 156/74
[2020-05-17] MEDS: furosemide 40mg tablet PO SCH (08:03)
[2020-05-17] MEDS: lactobacillus rhamnosus 10,000 MMU CELLS/CAPSULE PO SCH ×2 (08:03→19:40)
[2020-05-17] MEDS: losartan 50mg tablet PO SCH (08:04)
[2020-05-17] MEDS: amLODIPine 5mg tablet PO SCH (08:05)
--- NOTE | 2020-05-17 08:53 | NUR ---
Patient stated she is tired of being poked. Patinet has been checked for 6 days and hasnt met protocol she would like to stop the blood sugar checks. Will relay message to
[2020-05-17] MEDS: normal saline 1000ml 1,000 ML IV SCH ×2 (10:15→20:08)
[2020-05-17 18:30] VITALS: BP 185/82
[2020-05-17 23:58] VITALS: BP 159/67
[2020-05-18] MEDS: piperacillin/tazo 3.375gm/50ml 50 ML IV SCH ×2 (00:56→10:00)
[2020-05-18] MEDS: acetaminophen 325mg tablet PO PRN ×2 (01:36→09:10)
[2020-05-18] MEDS: VANCOmycin 1250MG/NS 250ml Bag 250 ML IV SCH (05:07)
[2020-05-18] MEDS: normal saline 1000ml 1,000 ML IV SCH (05:10)
--- NOTE | 2020-05-18 06:41 | NUR ---
Problems reprioritized. Patient report given, questions answered & plan of care reviewed with Toma. Addendum: 05/18/20 at 0641 by Lamonte Givens RN Amended: Links added.
[2020-05-18 07:00] VITALS: BP 157/79
--- NOTE | 2020-05-18 07:09 | NUR ---
Patient in room [facility] 344. I have received report from suresh caceres and had the opportunity to ask questions and assume patient care.
[2020-05-18] MEDS: lactobacillus rhamnosus 10,000 MMU CELLS/CAPSULE PO SCH (07:52)
[2020-05-18] MEDS: amLODIPine 5mg tablet PO SCH (07:53)
[2020-05-18] MEDS: furosemide 40mg tablet PO SCH (07:53)
[2020-05-18] MEDS: losartan 50mg tablet PO SCH (07:53)
[2020-05-18 08:13] LABS: BASOPHILS # (AUTO) 0.1 X10'3 (0-0.2); BASOPHILS % (AUTO) 1.4 % (0-1); EOSINOPHILS # (AUTO) 0.2 X10'3 (0-0.9); HEMATOCRIT 31.3 % (35.0-45.0); HEMOGLOBIN 10.6 g/dl (12.0-16.0); LYMPHOCYTES % (AUTO) 26.9 % (21-51); MEAN CORPUSCULAR HEMOGLOBIN 31.3 PG (27.0-31.0); MEAN CORPUSCULAR HGB CONC 33.8 g/dL (33.0-36.5); MEAN CORPUSCULAR VOLUME 92.7 FL (78-98); MEAN PLATELET VOLUME 6.1 FL (7.4-10.4); MONOCYTES # (AUTO) 0.4 X10'3 (0-0.9); MONOCYTES % (AUTO) 9.3 % (2-12); NEUTROPHILS # (AUTO) 2.3 X10'3 (1.8-7.7); NEUTROPHILS % (AUTO) 58.4 % (42-75); PLATELET COUNT 260 X10'3 (140-440); RED BLOOD COUNT 3.38 X10'6 (4.20-5.60); RED CELL DISTRIBUTION WIDTH 13.3 % (11.5-14.5); WHITE BLOOD COUNT 3.9 X10'3 (4.5-11.0)
[2020-05-18 08:14] LABS: ALANINE AMINOTRANSFERASE 20 U/L (12-78); ALBUMIN 2.9 G/DL (3.4-5.0); ALBUMIN/GLOBULIN RATIO 0.7 (1.1-1.5); ALKALINE PHOSPHATASE 74 IU/L (46-116); ANION GAP 7 (8-16); ASPARTATE AMINO TRANSFERASE 15 U/L (10-37); BILIRUBIN,TOTAL 0.4 MG/DL (0.1-1.0); BLOOD UREA NITROGEN 13 MG/DL (7-18); BUN/CREATININE RATIO 16.9 (6.6-38.0); CALCIUM 8.5 MG/DL (8.5-10.1); CHLORIDE 106 MMOL/L (99-107); CREATININE 0.77 MG/DL (0.40-0.90); GLUCOSE 136 MG/DL (70-104); POTASSIUM 3.6 MMOL/L (3.5-5.1); SODIUM 140 MMOL/L (135-145); TOTAL CARBON DIOXIDE 26.8 MMOL/L (24-32); eGFR 73 ML/MIN
[2020-05-18] MEDS ORDERED: AMOX-422 PO (10:43)
--- NOTE | 2020-05-18 11:34 | NUR ---
PAGED DR MELVIN RE: PAGER ID: [phone] MESSAGE: DONNIE PEREYRA. CURRENT BP 191/89. DO YOU WANT TO TREAT BEFORE DISCHARGE? SURGICAL [facility] 2130
[2020-05-18 11:46] VITALS: BP 191/89
--- NOTE | 2020-05-18 12:25 | NUR ---
2ND PAGE PAGER ID: [phone] MESSAGE: SURGICAL PLEASE CALL HUDSON [id number]
[2020-05-18] MEDS ORDERED: amLODIPine 5mg tablet PO ONE (12:45)
[2020-05-18 14:00] VITALS: BP 203/107
--- NOTE | 2020-05-18 14:11 | NUR ---
PAGED DR MELVIN RE: PAGER ID: [phone] MESSAGE: DONNIE PEREYRA . BP 203/107 HR 101. PT VERY UPSET AT THIS TIME, WANTS TO LEAVE. SURGICAL [facility] 1029
--- NOTE | 2020-05-18 14:16 | NUR ---
PT BP 203/107 HR 101. PT VERY UPSET AT THIS TIME, STATES THAT SHE WANTS TO LEAVE. WE ARE AGGRAVATING HER, STATES THAT WE ARE JUST TRYING TO KEEP HER HERE. I NOTIFIED DR MELVIN, HE STATES THAT WE CAN DISCHARGE PT HOME AND HH WILL FOLLOW UP WITH HER.
--- NOTE | 2020-05-18 15:00 | NUR ---
PT DISCHARGED IN STABLE CONDITION. LEFT FACILITY IN PRIVATE VEHICLE WITH . FOLLOW UP INSTRUCTIONS GIVEN. IV DC CANULA INTACT. PT HAS OUTPT WOUND CARE SCHEDULED FOR 05/21, PT AWARE. PT BP ELEVATED, MD AWARE. PT INSISTED THAT SHE LEAVES. PT AWARE SHE NEEDS TO FU WITH PCP AND DYLAN. Addendum: 05/18/20 at 1634 by Teresa Randle RN Amended: Links added.
== END 2020-05-18 14:57 | disposition home health service (06) | DRG 605 ==
LOC: ER 12:59 → ED HOLD 14:13 → SUR 3N 21:00
PROVIDERS: ADMIT Family Medicine; ATTEND Family Medicine
DX: S91.052A Open bite, left ankle, initial encounter (principal); L03.116 Cellulitis of left lower limb; E11.9 Type 2 diabetes mellitus without complications; E78.5 Hyperlipidemia, unspecified; I10 Essential (primary) hypertension; E87.6 Hypokalemia; D64.9 Anemia, unspecified; M54.9 Dorsalgia, unspecified; G89.29 Other chronic pain; W55.81XA Bitten by other mammals, initial encounter; Y93.89 Activity, other specified; Y92.79 Other farm location as the place of occurrence of the external cause; Y99.8 Other external cause status; Z90.49 Acquired absence of other specified parts of digestive tract
CPT/HCPCS: 36415; 73701; 73723; 80053; 80202; 82575; 82948; 83036; 83605; 84145; 85025; 85610; 85730; 87040; 87081; 97110; 97116; 97161; 97530; 99285; A9575; G0378; J1170; J1815; J2405; J2543; J3370; J7030; J8597; Q9967

== ENCOUNTER → 2020-06-28 | Outpatient (CLI) | payer MEDICARE ==
[~2020-06-28] MED LIST changes: -AMLO2.5T2 PO; +ASPI-109 PO; -LACT1CAP26 PO; +MAGN400C PO; +MULT-384 PO; +OLME20TA23 PO; -POTA20PA40 PO; -VALS160T30 PO
== END | disposition home or self-care (01) ==
LOC: WOUND CARE 11:36
PROVIDERS: ATTEND Nurse Practitioner
DX: S91.052D Open bite, left ankle, subsequent encounter (principal); E11.622 Type 2 diabetes mellitus with other skin ulcer; L98.492 Non-pressure chronic ulcer of skin of other sites with fat layer exposed; I10 Essential (primary) hypertension; E78.5 Hyperlipidemia, unspecified; Z90.49 Acquired absence of other specified parts of digestive tract; W55.81XD Bitten by other mammals, subsequent encounter
CPT/HCPCS: 11042

== ENCOUNTER 2024-08-29 08:30 | Emergency (ER) | payer MEDICARE ==
[~2024-08-29] VITALS: Ht 165.1 cm; Wt 91.5 kg
[~2024-08-29 08:30] MED LIST changes: -OLME20TA23 PO; +OLME20TA69 PO
[2024-08-29 08:33] VITALS: TEMP 97.2
--- NOTE | 2024-08-29 08:46 | ELECTROCARDIOGRAPH REPORT ---
[facility] Test Date: 2024-08-29 Test Time: 08:43:11 Pat Name: DONNIE PEREYRA Department: [facility]-ER Patient ID: [facility]-[id number] Room: Gender: F Simulation Developer: : 1945 Requested By: LEBRON RICHARD Order Number: [id number] Reading MD: Dr. Hakeem Harp Measurements Intervals [place] Rate: 60 P: 39 KS: 197 QRS: -24 QRSD: 104 T: 54 QT: 434 QTc: 434 Interpretive Statements Sinus rhythm Abnormal R-wave progression, late transition Left ventricular hypertrophy ST elevation, consider inferior injury Electronically Signed On 08-29-2024 22:15:[address] Hakeem Harp Please click the below link to view image of tracing.
--- NOTE | 2024-08-29 09:11 | RADIOLOGY REPORT ---
DI CHEST,SINGLE VIEW, HISTORY: CP COMPARISON: None None TECHNICAL DATA: 1 view of the chest was obtained. FINDINGS: Lines and tubes: None Cardiomediastinal silhouette: normal Pulmonary vasculature: normal Lung expansion: normal Lung airspace: normal Lung interstitium: normal Pleura: normal Pneumothorax: no Bones: Unremarkable Other: no IMPRESSION: No acute intrathoracic abnormality.
[2024-08-29 09:16] LABS: BASOPHILS # (AUTO) 0.1 X10'3 (0-0.2); BASOPHILS % (AUTO) 0.9 % (0-1); EOSINOPHILS # (AUTO) 0.1 X10'3 (0-0.9); EOSINOPHILS % (AUTO) 1.8 % (0-6); HEMATOCRIT 39.4 % (35.0-45.0); HEMOGLOBIN 13.3 g/dl (12.0-16.0); LYMPHOCYTES # (AUTO) 1.1 X10'3 (1.1-4.8); LYMPHOCYTES % (AUTO) 17.7 % (21-51); MEAN CORPUSCULAR HEMOGLOBIN 30.5 PG (27.0-31.0); MEAN CORPUSCULAR HGB CONC 33.9 g/dL (33.0-36.5); MEAN CORPUSCULAR VOLUME 90.1 FL (78-98); MONOCYTES # (AUTO) 0.3 X10'3 (0-0.9); MONOCYTES % (AUTO) 5.3 % (2-12); NEUTROPHILS # (AUTO) 4.6 X10'3 (1.8-7.7); NEUTROPHILS % (AUTO) 74.3 % (42-75); PLATELET COUNT 222 X10'3 (140-440); RED BLOOD COUNT 4.37 X10'6 (4.20-5.60); RED CELL DISTRIBUTION WIDTH 13.4 % (11.5-14.5); WHITE BLOOD COUNT 6.2 X10'3 (4.5-11.0)
[2024-08-29] MEDS: losartan 50mg tablet PO ONE (09:19)
[2024-08-29] MEDS: ondansetron 4mg rapidly disintigrating tab PO ONE (09:19)
[2024-08-29 09:52] LABS: ALANINE AMINOTRANSFERASE 27 U/L (12-78); ALBUMIN 3.9 G/DL (3.4-5.0); ALKALINE PHOSPHATASE 80 IU/L (46-116); ANION GAP 8 (8-16); ASPARTATE AMINO TRANSFERASE 18 U/L (10-37); BILIRUBIN,TOTAL 0.4 MG/DL (0.1-1.0); BLOOD UREA NITROGEN 41 MG/DL (7-18); BUN/CREATININE RATIO 34.5 (10.0-20.0); CALCIUM 9.3 MG/DL (8.5-10.1); CHLORIDE 99 MMOL/L (99-107); CREATININE 1.19 MG/DL (0.40-0.90); GLUCOSE 226 MG/DL (70-104); POTASSIUM 3.5 MMOL/L (3.5-5.1); PRO BRAIN NATRIURETIC PEPTIDE 184 PG/ML (0-450); SODIUM 137 MMOL/L (135-145); TOTAL CARBON DIOXIDE 30.3 MMOL/L (24-32); TOTAL PROTEIN 7.7 G/DL (6.4-8.2); eCRCL 34 ML/MIN; eGFR 44 ML/MIN
--- NOTE | 2024-08-29 10:51 | Physician Documentation ---
History of Present Illness ~ Chief Complaint: Dizziness Stated Complaint: DIZZY Time Seen by MD: 08:54 Primary Medical Doctor: PALMIRA DURAN Mode of Arrival: POV HPI 79-year-old female patient with a history of hypertension on medication came to the emergency room by private vehicle because she is feeling dizzy this morning and nauseated. She could not keep any of her blood pressure medicine and no breakfast. She was lightheaded a bit and little bit of headache. No spinning sensation. Her balance is normal. No visual changes. No auditory changes. Denies chest pain and shortness a breath. No trauma. She told me that she is probably prediabetic. She also taking medication for hyperlipidemia. Medication Reconciliation Allergies: Coded Allergies: cephalexin (Verified Allergy, Intermediate, HIVES, 08/29/24) codeine (Verified Allergy, Mild, VOMITING, 08/29/24) nitrofurantoin (Verified Allergy, Mild, VOMITING, 08/29/24) doxycycline (Verified Adverse Reaction, Mild, N/V, 08/29/24) levofloxacin (Verified Adverse Reaction, Mild, N/V, 08/29/24) Scheduled Aspirin (Aspirin), 1 TAB PO DAILY, (Reported) Furosemide 40 MG (Lasix), 1 TAB PO DAILY, (Reported) Magnesium Chloride (Slow-Mag), 1 TAB PO Q12H Magnesium Oxide (Magnesium), 1 CAP PO DAILY, (Reported) Metformin Hcl* (Glucophage*), 1 TAB PO Q12H, (Reported) Multivitamin (Daily Vitamin Formula), 1 TAB PO DAILY, (Reported) Olmesartan Medoxomil (Olmesartan Medoxomil), 1 TAB PO DAILY, (Reported) Vitamin B Complex (B Complex), 1 EACH PO DAILY, (Reported) Scheduled PRN ONDANSETRON ODT 4mg tablet (Ondansetron Odt), 1 TAB PO Q6H PRN PRN for nausea/vomiting Past Medical History Past Medical History: Hypertension, Diabetes, Chronic Back Pain Past Surgical History: orthopedic surgeries Alcohol Use: None Drug Use: none Lives In: Home Review of Systems ROS As stated above in the HPI, otherwise all systems are reviewed and negative. Physical Exam Vital Signs: Temperature: 97.2, Source: Temporal, Heart Rate: 63, Respiratory Rate: 13, BP: 167/85, Pulse Oximetry: 94, Weight: 91.500 Oxygen Flow Rate: 0 Progress Results/Orders Results/Orders Orders - LEBRON RICHARD MD Chest,Single View (08/29/24 08:37) Monitor (08/29/24 08:37) Saline Lock (08/29/24 08:37) Oxygen (08/29/24 08:37) Hs Troponin I W Calculations (08/29/24 10:37) Completed Orders - LEBRON RICHARD MD Chest,Single View (08/29/24 08:37) Cbc/Diff (08/29/24 08:37) PBNP (08/29/24 08:37) Electrocardiogram (08/29/24 08:37) CMP (08/29/24 08:37) Hs Troponin I W Calculations (08/29/24 08:37) Ondansetron Disint. Tablet (Zofran Odt T (08/29/24 09:00) Losartan Tablet (Cozaar Tablet) (08/29/24 09:00) Vital Signs 08/29/24 08/29/24 08/29/24 08/29/24 08:33 09:19 10:27 10:30 Temp 97.2 Pulse 63 61 63 Resp 16 13 B/P (MAP) 210/102 167/85 (112) Pulse Ox 100 94 O2 Flow Rate 0 08/29/24 11:10 Pulse 60 Resp 14 B/P (MAP) 154/79 Pulse Ox 94 Laboratory Tests Test 08/29/24 09:03 08/29/24 09:19 White Blood Count 6.2 Red Blood Count 4.37 Hemoglobin 13.3 Hematocrit 39.4 Mean Corpuscular Volume 90.1 Mean Corpuscular Hemoglobin 30.5 Mean Corpuscular Hemoglobin Concent 33.9 Red Cell Distribution Width 13.4 Platelet Count 222 Mean Platelet Volume 7.0 L Neutrophils (%) (Auto) 74.3 Lymphocytes (%) (Auto) 17.7 L Monocytes (%) (Auto) 5.3 Eosinophils (%) (Auto) 1.8 Basophils (%) (Auto) 0.9 Neutrophils # (Auto) 4.6 Lymphocytes # (Auto) 1.1 Monocytes # (Auto) 0.3 Eosinophils # (Auto) 0.1 Basophils # (Auto) 0.1 CBC Comment Troponin I High Sensitivity 12 Sodium Level 137 Potassium Level 3.5 Chloride Level 99 Carbon Dioxide Level 30.3 Anion Gap 8 Blood Urea Nitrogen 41 H Creatinine 1.19 H Estimated GFR/1.73 m2 44 BUN/Creatinine Ratio 34.5 H Glucose Level 226 H Calcium Level 9.3 Total Bilirubin 0.4 Aspartate Amino Transf (AST/SGOT) 18 Alanine Aminotransferase (ALT/SGPT) 27 Alkaline Phosphatase 80 Pro-B-Type Natriuretic Peptide 184 Total Protein 7.7 Albumin 3.9 Globulin 3.8 Albumin/Globulin Ratio 1.0 L Chemistry Comments Medical Decision Making Findings During the physical examination, the findings suggestive of acute life- threatening condition such as JVD, tracheal deviation, acidotic breathing, noisy stridorous breath sounds, pulses paradoxus, muffled heart sounds, unequal breath sounds, abdominal rigidity and rebound tenderness, focal neurological deficits, cool clammy skin, severe hypotension, severe tachycardia or bradycardia are absent. Patient is hemodynamically stable. That is no neurological deficit and her coordination is normal. Her EKG is sinus rhythm at a rate of 60. Left axis deviation. Normal intervals and no acute ischemic changes. Her CBC is essentially normal. Sodium 137 potassium 3.5 chloride 99 bicarb 30.3 BUN 41 and creatinine 1.19 and glucose 226. Her proBNP is 184 and troponin is 12. I then she will probably benefit from taking small dose of potassium as soon as she is taking furosemide. Patient is explained about the finding and the patient will be discharged from the emergency room with aftercare instructions. Chest x-ray is unremarkable. Based on the patients history and presentation, my work up and conclusions are as follows dizziness unspecified. Prior to discharge I independently reviewed the patients past medical history, clinical risk factors, comorbidities, social determinants of health and diagnostic studies. I had extensive discussion with patient regarding management, disposition and follow up. Potential symptom etiology was discussed, and shared decision making occurred. They will return immediately if symptoms worsen, do not improve, or they have any further concerns. Prior to discharge all questions were addressed. The patient is aware that the purpose of this visit was to screen for an acute medical emergency requiring emergent stabilization. Chronic and occult conditions, including malignancies, have not been ruled out. If patient is unable to arrange follow-up as stated in the discharge instructions and further discussed with the patient directly, or their symptoms worsen/become more concerning, they are to return to the ER for reassessment immediately. Prior to leaving the department, the patient has a plan for discharge, has decision making capacity, and acknowledges an understanding of the verbal and written discharge instructions. DISCLAIMER Inadvertent spelling and grammatical errors,inadvertent toe stripper errors,syntax errors, grammatical errors, and spelling errors are likely due to EMR/dictation software use and do not reflect on the overall quality of patient care. Note that the electronic time recorded on this note does not necessarily reflect the actual time of the patient encounter. Departure Disposition: 01 HOME / SELF CARE / HOMELESS Impression: Primary Impression: Dizziness Condition: Fair Discharge Instructions: Dizziness Additional Instructions: Thank you so much for visiting [facility] Emergency room. Please ask your nurse or provider if you have questions about your care today and do not leave until all your questions have been answered. Please use any medications given as directed and follow-up with your doctor in the next 1-3 days. You may also use motrin and tylenol as needed for pain unless instructed otherwise by your provider or nurse. Indications for more urgent follow-up have been discussed, but you may return to the Emergency Department at ANY time for any worrisome or worsening symptoms. Please consume potassium rich food like avocado, potato and banana. Referrals: NO PRIMARY CARE PROVIDER (PCP) Prescriptions Magnesium Chloride (Slow-Mag) 71.5 Mg Tablet.dr 1 TAB PO Q12H for 30 Days, #60 TAB 0 Refills Prov: LEBRON RICHARD MD 08/29/24 ONDANSETRON ODT 4mg tablet (ONDANSETRON ODT) 4 Mg Tab.rapdis 1 TAB PO Q6H PRN PRN for nausea/vomiting for 4 Days, #16 TAB 0 Refills Prov: LEBRON RICHARD MD 08/29/24 Signature Scribe Signature: x Attestation: LEBRON Castellanos MD August 29, 2024 10:51
[2024-08-29] MEDS ORDERED: MAGN64TA8 PO (10:55)
[2024-08-29] MEDS ORDERED: ONDA-243 PO (10:55)
[2024-08-29 11:10] VITALS: BP 154/79; PULSE 60; RESP 14; O2SAT 94
== END 2024-08-29 11:15 | disposition home or self-care (01) ==
LOC: ER 08:31
DX: R42 Dizziness and giddiness (principal); E78.5 Hyperlipidemia, unspecified; E11.9 Type 2 diabetes mellitus without complications; I10 Essential (primary) hypertension; G89.29 Other chronic pain; M54.9 Dorsalgia, unspecified; Z88.1 Allergy status to other antibiotic agents; Z88.5 Allergy status to narcotic agent; Z79.82 Long term (current) use of aspirin; Z79.899 Other long term (current) drug therapy; Z79.84 Long term (current) use of oral hypoglycemic drugs; Z98.890 Other specified postprocedural states
CPT/HCPCS: 36415; 71045; 80053; 83880; 84484; 85025; 93005; 99285